=== PATIENT | female | born 1970 | race Hispanic/Latino ===

== ENCOUNTER 2025-03-20 07:48 | Outpatient (CLI) | payer OTHER ==
[2025-03-20] MEDS ORDERED: Iopamidol 300 61% 100 ML VIAL FS ONE (14:05)
== END 2025-03-20 07:49 | disposition home or self-care (01) ==
LOC: CSHCT 07:48
PROVIDERS: ATTEND Family Medicine
DX: Z87.410 Personal history of cervical dysplasia (principal); R19.5 Other fecal abnormalities; R63.4 Abnormal weight loss; R10.84 Generalized abdominal pain; K57.30 Diverticulosis of large intestine without perforation or abscess without bleeding; K76.0 Fatty (change of) liver, not elsewhere classified
CPT/HCPCS: 74177